=== PATIENT | female | born 1960 | race Caucasian/White ===

== ENCOUNTER 2016-06-29 11:43 | Emergency (ER) | payer MEDICARE, MEDICAID ==
[2016-06-29 11:55] VITALS: BP 124/72
--- NOTE | 2016-06-29 12:20 | ED Physician Chart ---
Chief Complaint/HPI - Patient Information Date Seen:: 06/29/16 Time Seen:: 12:00 Chief Complaint:: Insect Bites History of Present Illness:: onset x 4 days ago of insect bites; pt admits to itching; no pain; denies C/P, SOB, Abd. pain, fever, chills, A/N/V/D/C; Last Tetanus Shot: < 5 years ago; UTD Allergies:: Allergies Allergy/AdvReac Type Severity Reaction Status Date / Time No Known Allergies Allergy Verified 06/29/16 11:54 Vitals:: Vital Signs - 8 hr 06/29/16 06/29/16 11:55 12:07 Temp 99.2 F 99.2 F HR 105 105 RR 15 16 BP 124/72 124/72 O2 Sat % 96 96 Historian:: Patient Review:: Nurse's Note Reviewed Review of Systems - Review of Systems General/Constitutional: Fever, Chills, No weight loss, No weakness, No diaphoresis, No edema, No loss of appetite Skin: Skin lesions, Rash, No bruising Head: No headache, No light-headedness Eyes: No loss of vision, No pain, No diplopia ENT: No earache, Nasal drainage, No sore throat, No tinnitus Neck: No neck pain, No swelling, No thyromegaly, No stiffness, No mass noted Cardio Vascular: No chest pain, No palpitations, No PND, No orthopnea, No edema Pulmonary: No SOB, Cough, No sputum, No wheezing GI: Nausea, Vomiting, Diarrhea, No pain, No melena, No hematochezia, No constipation, No hematemesis G/U: No dysuria, No frequency, No hematuria Musculoskeletal: No bone or joint pain, No back pain, No muscle pain Endocrine: No polyuria, No polydipsia Psychiatric: No prior psych history, No depression, No anxiety, No suicidal ideation Hematopoietic: No bruising, No lymphadenopathy Allergic/Immuno: No urticaria, No angioedema Neurological: No syncope, No focal symptoms, No weakness, No paresthesia, No headache, No seizure, No dizziness, No confusion, No vertigo Past Medical History - Past Medical History Past Medical History: DM, PUD/GERD, Thyroid disorder, Other (Anemia) Family History: Diabetes Melitus, HTN Social History: Non Smoker, No Alcohol, No Drug Use, Care Facility Surgical History: None Psychiatricy History: None Medication: Reviewed Family Medical History - Family Member Father History Unknown: Yes Physical Exam - Physical Examination General/Constitutional: Awake, Well-developed, well-nourished, Alert, No distress, GCS 15, Non-toxic appearing, Ambulatory Head: Atraumatic Eyes: Lids, conjuctiva normal, PERRL, EOMI Skin: Nl inspection, No rash, No skin lesions, No ecchymosis, Well hydrated, No lymphadenopathy Other Skin comments:: Scattered insect bite-type lesions/papules on all extremities; no FBs; no cellulitis; good motor, tendon, and sensory functions; good MV functions ENMT: External ears, nose nl, Nasal exam nl, Lips, teeth, gums nl Neck: Nontender, Full ROM w/o pain, No JVD, No nuchal rigidity, No bruit, No mass, No stridor Respiratory: Nl effort/Exclusion, Clear to Auscultation, No Wheeze/Rhonchi/Rales Cardio Vascular: RRR, No murmur, gallop, rubs, NL S1 S2 GI: No tenderness/rebounding/guarding, No organomegaly, No hernia, Normal BS's, Nondistended, No mass/bruits, No McBurney tenderness : No CVA tenderness Extremities: No tenderness or effusion, Full ROM, normal strength in all extremities, No edema, Normal digits & nails Neuro/Psych: Alert/oriented, DTR's symmetric, Normal sensory exam, Normal motor strength, Judgement/insight normal, Mood normal, Normal gait, No focal deficits Misc: normal gait, Normal back, No paraspinal tenderness ED Septic Shock - . Is Septic Shock (SBP<90, OR Lactate>4 mmol\L) present?: No - <6hrs of presentation: Vital Signs: Vital Signs - 8 hr 06/29/16 06/29/16 11:55 12:07 Temp 99.2 F 99.2 F HR 105 105 RR 15 16 BP 124/72 124/72 O2 Sat % 96 96 Reassessment (Disposition) - Reassessment Reassessment Condition:: Improved - Diagnosis Diagnosis:: Insect Bite Wounds; Mild Insect Bite Wound Infection; Fever: Wounds/Bites - Aftercare/Follow up Instructions Aftercare/Follow-Up Instructions:: Counseled pt regarding lab results/diagnosis & need follow up, Refer to Discharge Instructions, Counseled pt & family regarding lab results/diagnosis & need follow up Medication Prescribed:: Azithromycin ( Z-Pack): take as prescribed (6); Tylenol 500mg po qid prn fever; Benadryl 25mg po qid prn itching - Patient Disposition Discharge/Transfer:: Home Condition at Disposition:: Stable, Improved (RTER prn if existing s/s reoccur and/or get worse and/or any other new s/s occur; ACIs given for all above Dx; refer to Post Office Markup Clerk/Inventory Taker JALEN; F/U with PMD in one day or prn' RTER prn if concerned) ED Discharge Plan - Patient Disposition Instructions: Insect Bite, [id number] Additional Instructions: 1. Follow up with your Primary Care Provider in 1-2 days. 2. Take medication as prescribed. 3. If symptoms worsen, return to emergency department for further evaluation.
== END 2016-06-29 12:16 | disposition home or self-care (01) ==
LOC: ER 11:43
DX: T14.8 Other injury of unspecified body region (principal); E11.9 Type 2 diabetes mellitus without complications; K21.9 Gastro-esophageal reflux disease without esophagitis; E07.9 Disorder of thyroid, unspecified; D64.9 Anemia, unspecified
CPT/HCPCS: Z7502